=== PATIENT | female | born 1970 | race Caucasian/White ===

== ENCOUNTER 2017-05-10 18:23 | Emergency (ER) | payer OTHER ==
[~2017-05-10] VITALS: Wt 71.0 kg
--- NOTE | 2017-05-10 18:50 | ERD ---
ER Documentation Chief Complaint Date/Time DATE: 05/10/17 TIME: 18:47 Chief Complaint LEFT 2ND TOE INJURY LAST NIGHT HPI This is a 46-year-old female presenting to emergency department with left second toe injury last night. Patient states she slammed her foot into a suitcase yesterday and fell with her left second toe bending forward. Patient states she has pain at time of injury and then pain and bruising became worse today. Denies any numbness, tingling or loss of sensation. Patient has pain to second toe. No foot pain or ankle pain. Patient did not take any medications for this. ROS All systems reviewed and are negative except as per history of present illness. Medications Home Meds Active Scripts Ibuprofen* (Motrin*) 400 Mg Tab, 400 MG PO Q6, #10 TAB Prov:FELICIANO LEHMAN NP 05/10/17 PMhx/Soc Medical and Surgical Hx: pt denies Medical Hx, pt denies Surgical Hx Hx Alcohol Use: No Hx Substance Use: No Hx Tobacco Use: No Smoking Status: Never smoker Physical Exam Vitals Vital Signs Date Time Temp Pulse Resp B/P Pulse Ox O2 Delivery O2 Flow Rate FiO2 05/10/17 18:28 97.2 79 17 121/65 98 Physical Exam Const: No acute distress, alert Head: Atraumatic Eyes: Normal Conjunctiva ENT: Normal External Ears, Nose and Mouth. Neck: Full range of motion..~ No meningismus. Resp: Clear to auscultation bilaterally Cardio: Regular rate and rhythm, no murmurs Abd: Soft, non tender, non distended. Normal bowel sounds Skin: No petechiae or rashes Back: No midline or flank tenderness Ext: No cyanosis, or edema. Mild edema to left second metatarsal with diffuse ecchymosis throughout toe. Able to extend and flex all metatarsals on left foot. Pedal pulses palpable on left and right foot 2+ bilaterally. Sensation fully intact. Capillary refill less than 3 seconds Neur: Awake and alert Psych: Normal Mood and Affect Results 24 hrs Current Medications Medications (Trade) Dose Ordered Sig/Donald Route PRN Reason Start Time Stop Time Status Last Admin Dose Admin Ibuprofen (Motrin) 600 mg ONCE ONCE PO 05/10/17 19:00 05/10/17 19:01 DC 05/10/17 18:47 Procedures/MDM [place] [address] Radiology Main Line: [phone] DIAGNOSTIC IMAGING REPORT Patient: SALLY ARMENTA : 1970 Age: 46 Sex: F MR #: [id number] DOS: 05/10/17 1844 Ordering MD: FELICIANO LEHMAN NP Location: [facility] Room/Bed: PROCEDURE: XR Toes. CLINICAL INDICATION: Toe pain after injury TECHNIQUE: AP, oblique and lateral views of the toes of the left foot were performed. COMPARISON: No prior studies are available for comparison. FINDINGS: No fracture or dislocation seen. Minimal osteoarthrosis at first metatarsophalangeal joint. IMPRESSION: No acute abnormality seen. MDM: This is a 46-year-old female presenting to emergency department with left second metatarsal injury and pain since last night. Patient smashed her left second toe on suitcase. X-ray toes reviewed by radiologist as no acute abnormality seen. No fracture dislocation seen. Low suspicion for acute dislocation or fracture. Patient is appropriate for outpatient management and will be given prescription for ibuprofen 400 mg #10. Instructed patient to follow-up with primary care provider in the next 2-3 days for reassessment. Return to ED for any high fever , chest pain, difficulty breathing, shortness breath, wheezing, vomiting, diarrhea, abdominal pain or any new or worsening symptoms. Patient verbalizes understanding. All questions answered at discharge. Departure Diagnosis: Primary Impression: Injury of toe Encounter type: initial encounter Laterality: left Qualified Code: S99.922A - Injury of toe, left, initial encounter Condition: Stable FELICIANO LEHMAN NP May 10, 2017 18:50
[2017-05-10] MEDS ORDERED: IBUPROFEN 600 MG TAB PO ONE (19:00)
[2017-05-10] MEDS ORDERED: IBUP400T22 PO (19:10)
--- NOTE | 2017-05-10 19:41 | RADRPT ---
PROCEDURE: XR Toes. CLINICAL INDICATION: Toe pain after injury TECHNIQUE: AP, oblique and lateral views of the toes of the left foot were performed. COMPARISON: No prior studies are available for comparison. FINDINGS: No fracture or dislocation seen. Minimal osteoarthrosis at first metatarsophalangeal joint. IMPRESSION: No acute abnormality seen. RPTAT: HJES .Salvador Brar MD, Date Time Electronically viewed and signed by .Salvador Brar MD, on 05/10/2017 19:40 .S/
== END 2017-05-10 20:06 | disposition home or self-care (01) ==
LOC: FTE 18:23
DX: S99.922A Unspecified injury of left foot, initial encounter (principal); W18.39XA Other fall on same level, initial encounter; Y92.9 Unspecified place or not applicable
CPT/HCPCS: 73660; Z7502; Z7610

== ENCOUNTER 2018-12-27 12:03 | Emergency (ER) | payer OTHER ==
[~2018-12-27] VITALS: Wt 77.6 kg
[~2018-12-27 12:03] MED LIST: IBUP-1561 PO
[2018-12-27 12:43] VITALS: BP 117/61; PULSE 73; RESP 18; Wt 77.6 kg
[2018-12-27] MEDS ORDERED: ACETAMINOPHEN 325 MG TAB PO ONE (15:30)
[2018-12-27] MEDS ORDERED: NEOM28OI2 TP (16:02)
[2018-12-27] MEDS ORDERED: IBUP-1542 PO (16:02)
[2018-12-27] MEDS ORDERED: ACYC400T2 PO (16:02)
--- NOTE | 2018-12-27 16:05 | ERD ---
ER Documentation Chief Complaint Chief Complaint swelling to L side labia, 'red, swollen, hardened' x1d HPI 48-year-old female presents with pain in her left vaginal area for the last day. She denies fevers, vomiting, shortness breath or chest pain. She denies any new sexual partners or concern for STDs. She denies vaginal discharge. Denies . ROS All systems reviewed and are negative except as per history of present illness. Medications Home Meds Active Scripts Ibuprofen* (Motrin*) 600 Mg Tab, 600 MG PO Q6, #15 TAB Prov:RUTH BEDOLLA MD 12/27/18 Acyclovir* (Acyclovir*) 400 Mg Tablet, 400 MG PO TID for 7 Days, TAB Prov:RUTH BEDOLLA MD 12/27/18 Neomycin Riggins/Bacitrac Zn/Poly (Triple Antibiotic Ointment) 28 Gm Oint...g., 28 GM TP TID for 7 Days Prov:RUTH BEDOLLA MD 12/27/18 Ibuprofen* (Motrin*) 400 Mg Tab, 400 MG PO Q6, #10 TAB Prov:FELICIANO LEHMAN NP 05/10/17 PMhx/Soc Medical and Surgical Hx: pt denies Medical Hx, pt denies Surgical Hx Hx Alcohol Use: No Hx Substance Use: No Hx Tobacco Use: No Smoking Status: Never smoker FmHx Family History: No diabetes, No coronary disease, No other Physical Exam Vitals Vital Signs Date Temp Pulse Resp B/P (MAP) Pulse Ox O2 O2 Flow FiO2 Time Delivery Rate 12/27/18 97.2 73 18 117/61 98 12:43 (79) Physical Exam Const: No acute distress Head: Atraumatic Eyes: Normal Conjunctiva ENT: Normal External Ears, Nose and Mouth. Neck: Full range of motion. No meningismus. Resp: Clear to auscultation bilaterally Cardio: Regular rate and rhythm, no murmurs Abd: Soft, non tender, non distended. Normal bowel sounds. Pelvic exam with driver guard shows a superficial ulcerative type lesion of the left labia minora. There is no significant swelling or induration and no fluctuance. No discharge. No pelvic pain or tenderness or masses. Skin: No petechiae or rashes Back: No midline or flank tenderness Ext: No cyanosis, or edema Neur: Awake and alert Psych: Normal Mood and Affect Results 24 hrs Current Medications Medications Dose Sig/Donald Start Time Status Last (Trade) Ordered Route PRN Stop Time Admin Dose Reason Admin 650 mg ONCE ONCE 12/27/18 DC Acetaminophen PO 15:30 (Tylenol 12/27/18 15:31 Tab) Procedures/MDM Patient presents with a lesion on her left labia minora. It appears to be possibly an abrasion or possibly herpetic. We will treat empirically with acyclovir, ibuprofen, triple antibiotic, instructions for recheck for worsening redness, fevers, new worsening symptoms. Herpes culture was sent and pending. Currently no signs to suggest PID, abdominal pain, surgical abdomen, sepsis. The patient was stable with no new complaints during the ER course. Clinically, there is no current evidence to suggest meningitis, sepsis, acute abdomen, pneumonia, stroke, acute coronary syndrome, pulmonary embolism, aortic dissec tion or any other emergent condition appearing to require further evaluation or hospitalization. Patient counseled regarding my diagnostic impression and care plan. Prior to discharge all questions answered. Pt agrees with treatment plan and understands strict return precautions. Pt is instructed to follow up with primary care provider within 24-48 hours. Precautionary instructions provided including instructions to return to the ER if not improving or for any worsening or changing symptoms or concerns. Departure Diagnosis: Primary Impression: Female genital symptoms Condition: Stable Patient Instructions: Symptoms With Uncertain Cause Referrals: DOCTOR,NOT ON STAFF (PCP) Additional Instructions: May be an abrasion or possible herpes type lesion. Lab results may return within a week. Recheck for worsening redness, fevers, new or worsening symptoms. RUTH BEDOLLA MD Dec 27, 2018 16:05
== END 2018-12-27 16:18 | disposition home or self-care (01) ==
LOC: FTE 12:03
DX: N90.89 Other specified noninflammatory disorders of vulva and perineum (principal)
CPT/HCPCS: 87255; Z7502; 99284

== ENCOUNTER 2019-02-28 13:21 | Emergency (ER) | payer OTHER ==
[~2019-02-28] VITALS: Ht 170.2 cm; Wt 72.0 kg
[~2019-02-28 13:21] MED LIST changes: +ACYC400T2 PO; +IBUP-1542 PO; +NEOM28OI2 TP
[2019-02-28 13:28] VITALS: BP 123/78; PULSE 62; RESP 18; Ht 170.2 cm; Wt 72.0 kg
[2019-02-28] MEDS ORDERED: ACETAMINOPHEN 325 MG TAB PO ONE (14:30)
[2019-02-28] MEDS ORDERED: IBUP-1561 PO (16:55)
[2019-02-28] MEDS ORDERED: ACET-141 PO (16:55)
--- NOTE | 2019-02-28 16:56 | ERD ---
ER Documentation Chief Complaint Chief Complaint left upper back pain while driving, speaking full sentences ROS All systems reviewed and are negative except as per history of present illness. Medications Home Meds Active Scripts Ibuprofen* (Motrin*) 400 Mg Tab, 400 MG PO Q6H PRN for PAIN, #30 TAB Prov:MADDISON VÁZQUEZ DO 02/28/19 Acetaminophen* (Acetaminophen*) 500 MG Extra Strength Tablet, 500 MG PO Q4H PRN for PAIN AND OR ELEVATED TEMP, #30 TAB Prov:MADDISON VÁZQUEZ 02/28/19 Ibuprofen* (Motrin*) 600 Mg Tab, 600 MG PO Q6, #15 TAB Prov:RUTH BEDOLLA MD 12/27/18 Acyclovir* (Acyclovir*) 400 Mg Tablet, 400 MG PO TID for 7 Days, TAB Prov:RUTH BEDOLLA MD 12/27/18 Neomycin Riggins/Bacitrac Zn/Poly (Triple Antibiotic Ointment) 28 Gm Oint...g., 28 GM TP TID for 7 Days Prov:RUTH BEDOLLA MD 12/27/18 Ibuprofen* (Motrin*) 400 Mg Tab, 400 MG PO Q6, #10 TAB Prov:FELICIANO LEHMAN NP 05/10/17 Allergies Allergies: Coded Allergies: No Known Allergy (Unverified , 02/28/19) PMhx/Soc Medical and Surgical Hx: pt denies Medical Hx, pt denies Surgical Hx Hx Alcohol Use: No Hx Substance Use: No Hx Tobacco Use: No Physical Exam Vitals Vital Signs Date Temp Pulse Resp B/P (MAP) Pulse Ox O2 O2 Flow FiO2 Time Delivery Rate 02/28/19 97.4 62 18 123/78 99 13:28 (93) Physical Exam Const: No acute distress Head: Atraumatic Eyes: Normal Conjunctiva ENT: Normal External Ears, Nose and Mouth. Neck: Full range of motion. No meningismus. Resp: Clear to auscultation bilaterally Cardio: Regular rate and rhythm, no murmurs Abd: Soft, non tender, non distended. Normal bowel sounds Skin: No petechiae or rashes Back: No midline or flank tenderness Ext: No cyanosis, or edema Neur: Awake and alert Psych: Normal Mood and Affect Result Diagram: 02/28/19 1446 02/28/19 1446 Results 24 hrs Laboratory Tests Test 02/28/19 14:46 White Blood Count 8.0 10^3/ul Red Blood Count 4.56 10^6/ul Hemoglobin 13.4 g/dl Hematocrit 42.5 % Mean Corpuscular Volume 93.2 fl Mean Corpuscular Hemoglobin 29.4 pg Mean Corpuscular Hemoglobin Concent 31.5 g/dl Red Cell Distribution Width 12.7 % Platelet Count 301 10^3/UL Mean Platelet Volume 10.3 fl Immature Granulocytes % 0.200 % Neutrophils % 56.2 % Lymphocytes % 30.8 % Monocytes % 10.0 % Eosinophils % 2.1 % Basophils % 0.7 % Nucleated Red Blood Cells % 0.0 /100WBC Immature Granulocytes # 0.020 10^3/ul Neutrophils # 4.5 10^3/ul Lymphocytes # 2.5 10^3/ul Monocytes # 0.8 10^3/ul Eosinophils # 0.2 10^3/ul Basophils # 0.1 10^3/ul Nucleated Red Blood Cells # 0.0 10^3/ul Sodium Level 142 mmol/L Potassium Level 4.4 mmol/L Chloride Level 106 mmol/L Carbon Dioxide Level 27 mmol/L Anion Gap 9 Blood Urea Nitrogen 11 mg/dl Creatinine 0.61 mg/dl Est Glomerular Filtrat Rate mL/min > 60 mL/min Glucose Level 88 mg/dl Calcium Level 9.6 mg/dl Total Bilirubin 0.4 mg/dl Direct Bilirubin 0.00 mg/dl Indirect Bilirubin 0.4 mg/dl Aspartate Amino Transf (AST/SGOT) 28 IU/L Alanine Aminotransferase (ALT/SGPT) 26 IU/L Alkaline Phosphatase 84 IU/L Total Protein 8.0 g/dl Albumin 4.6 g/dl Globulin 3.40 g/dl Albumin/Globulin Ratio 1.35 Current Medications Medications Dose Sig/Donald Start Time Status Last (Trade) Ordered Route PRN Stop Time Admin Dose Reason Admin 650 mg ONCE ONCE 02/28/19 DC 02/28/19 Acetaminophen PO 14:30 14:37 (Tylenol 02/28/19 14:31 Tab) Departure Diagnosis: Primary Impression: Left shoulder pain Chronicity: acute Qualified Codes: M25.512 - Pain in left shoulder Additional Impression: Left arm pain Condition: Fair Patient Instructions: Shoulder Pain (Uncertain Cause) Referrals: COMMUNITY CLINICS YOU HAVE RECEIVED A MEDICAL SCREENING EXAM AND THE RESULTS INDICATE THAT YOU DO NOT HAVE A CONDITION THAT REQUIRES URGENT TREATMENT IN THE EMERGENCY DEPARTMENT. FURTHER EVALUATION AND TREATMENT OF YOUR CONDITION CAN WAIT UNTIL YOU ARE SEEN IN YOUR DOCTORS OFFICE WITHIN THE NEXT 1-2 DAYS. IT IS YOUR RESPONSIBILITY TO MAKE AN APPOINTMENT FOR FOLOW-UP CARE. IF YOU HAVE A PRIMARY DOCTOR --you should call your primary doctor and schedule an appointment IF YOU DO NOT HAVE A PRIMARY DOCTOR YOU CAN CALL OUR PHYSICIAN REFERRAL HOTLINE AT IF YOU CAN NOT AFFORD TO SEE A PHYSICIAN YOU CAN CHOSE FROM THE FOLLOWING [facility] [address] [facility]. [facility] [address] [facility] [employer] [facility] [address] [facility] [facility] [address] [facility]. [facility] [address] [facility]. [facility]. [address] Additional Instructions: Call your primary care doctor TOMORROW for an appointment during the next 1-2 days.See the doctor sooner or return here if your condition worsens before your appointment time. MADDISON VÁZQEUZ DO February 28, 2019 16:56
== END 2019-02-28 17:06 | disposition home or self-care (01) ==
LOC: FTE 13:21
DX: M25.512 Pain in left shoulder (principal); M79.602 Pain in left arm; R51 Headache
CPT/HCPCS: 70450; 73030; 80053; 85025; 93005; Z7502; Z7610